=== PATIENT | female | born 1955 | race African-American/Black ===

== ENCOUNTER 2016-11-19 13:06 | Emergency (ER) | payer MEDICAID ==
[2016-11-19] MEDS ORDERED: METHOCARBAMOL 750 MG TABLET ONE (15:19)
[2016-11-19] MEDS ORDERED: HYDROcodone/APAP 5/325 TABLET ONE (15:19)
== END 2016-11-19 15:55 ==
LOC: ED 13:06
DX: Z76.0 Encounter for issue of repeat prescription (principal); M16.11 Unilateral primary osteoarthritis, right hip; M17.11 Unilateral primary osteoarthritis, right knee; I10 Essential (primary) hypertension
CPT/HCPCS: 99283

== ENCOUNTER 2016-11-21 13:48 | Emergency (ER) | payer MEDICAID ==
[~2016-11-21] VITALS: Ht 182.9 cm; Wt 104.5 kg
[2016-11-21 13:50] VITALS: BP 134/78
== END 2016-11-21 14:44 | disposition home or self-care (01) ==
LOC: ED 14:37
DX: S50.361A Insect bite (nonvenomous) of right elbow, initial encounter (principal); I10 Essential (primary) hypertension; W57.XXXA Bitten or stung by nonvenomous insect and other nonvenomous arthropods, initial encounter; Y93.89 Activity, other specified; Y99.8 Other external cause status; Y92.89 Other specified places as the place of occurrence of the external cause
CPT/HCPCS: 99283

== ENCOUNTER 2017-03-24 13:43 | Emergency (ER) | payer MEDICAID ==
[~2017-03-24] VITALS: Ht 182.9 cm; Wt 104.7 kg
[2017-03-24 13:48] VITALS: BP 169/93
== END 2017-03-24 15:18 | disposition home or self-care (01) ==
LOC: ED 15:11
DX: S39.012A Strain of muscle, fascia and tendon of lower back, initial encounter (principal); G89.29 Other chronic pain; M25.551 Pain in right hip; I10 Essential (primary) hypertension; W19.XXXA Unspecified fall, initial encounter; Y93.89 Activity, other specified; Y92.89 Other specified places as the place of occurrence of the external cause; Y99.8 Other external cause status
CPT/HCPCS: 99283

== ENCOUNTER 2017-05-03 12:40 | Emergency (ER) | payer MEDICAID ==
[~2017-05-03] VITALS: Ht 182.9 cm; Wt 101.4 kg
[2017-05-03 12:42] VITALS: BP 103/69
[2017-05-03] MEDS ORDERED: KETOROLAC 30 MG/1 ML IM ONE (13:30)
[2017-05-03] MEDS ORDERED: METHOCARBAMOL 750 MG TABLET PO ONE (13:30)
[2017-05-03] MEDS ORDERED: METHOCARBAMOL 750 MG TABLET ONE (13:31)
[2017-05-03] MEDS ORDERED: KETOROLAC 30 MG/1 ML ONE (13:31)
== END 2017-05-03 14:10 | disposition home or self-care (01) ==
LOC: ED 13:39
DX: G89.29 Other chronic pain (principal); M54.5 Low back pain; I10 Essential (primary) hypertension; M19.90 Unspecified osteoarthritis, unspecified site
CPT/HCPCS: 96372; 99283; J1885

== ENCOUNTER 2019-05-29 13:30 | Inpatient (IN) | payer MEDICAID ==
[~2019-05-29] VITALS: Ht 180.3 cm; Wt 94.2 kg
[~2019-05-29 13:30] MED LIST: BENA5TAB3 PO; CLON0.1T22 PO
[2019-05-29] MEDS ORDERED: ASPIRIN 81 MG TABLET CHEW PO ONE (14:30)
[2019-05-29] MEDS ORDERED: ASPIRIN 81 MG TABLET CHEW ONE (14:31)
[2019-05-29 14:33] LABS: BASOPHILS # (AUTO) 0.02 x10^3/uL (0-0.1); BASOPHILS % (AUTO) 0 % (0-1); EOSINOPHILS # (AUTO) 0.08 x10^3/uL (0-0.4); EOSINOPHILS % (AUTO) 1 % (1-7); LYMPHOCYTES % (AUTO) 19 % (22-44); MD NO; MEAN CORPUSCULAR HEMOGLOBIN 35.1 pg (27.0-34.8); MEAN CORPUSCULAR HGB CONC 33.6 g/dL (32.4-35.8); MEAN CORPUSCULAR VOLUME 104.3 fL (80-100); MEAN PLATELET VOLUME 8.2 fL (7.4-10.4); MONOCYTES # (AUTO) 0.52 x10^3/uL (0.2-0.8); MONOCYTES % (AUTO) 9 % (2-9); NEUTROPHILS # (AUTO) 4.24 x10^3/uL (1.8-6.8); NEUTROPHILS % (AUTO) 71 % (42-75); PLATELET COUNT 233 x10^3/uL (130-400); RED CELL DISTRIBUTION WIDTH 14.4 % (9.6-15.2)
[2019-05-29 14:38] LABS: ALANINE AMINOTRANSFERASE 20 U/L (12-78); ALBUMIN 3.9 g/dL (3.4-5.0); ANION GAP 8 mmol/L (5-15); CALCIUM 10.5 mg/dL (8.5-10.1); CHLORIDE 109 mmol/L (98-107)
[2019-05-29 14:42] LABS: ALKALINE PHOSPHATASE 73 U/L (45-117); BILIRUBIN,TOTAL 0.7 mg/dL (0.2-1.0); CREATININE 1.24 mg/dL (0.55-1.02); TOTAL PROTEIN 8.2 g/dL (6.4-8.2); TROPONIN I < 0.015 ng/mL (0.000-0.045)
--- NOTE | 2019-05-29 16:43 | NUR ---
TASK RN, COVERING MEAL BREAK. PT IN CT.
--- NOTE | 2019-05-29 17:02 | NUR ---
PT BACK FROM CT. VSS/UPDATED IN COMPUTER.
--- NOTE | 2019-05-29 17:08 | NUR ---
CT READ BACK, PT FOR RECHECK.
[2019-05-29] MEDS ORDERED: SODIUM CHLORIDE FLUSH 10ML SYR IVF PRN (18:30)
[2019-05-29] MEDS ORDERED: ONDANSETRON 2MG/ML, 2ML IVPush PRN (19:30)
[2019-05-29] MEDS ORDERED: hydrALAzine 20 MG/ML, 1ML IVPush PRN (19:30)
[2019-05-29] MEDS ORDERED: NITROGLYCERIN 0.4 MG BOTTLE (25 TABS) SL PRN (19:30)
[2019-05-29] MEDS ORDERED: ACETAMINOPHEN 325 MG TABLET PO PRN (19:30)
[2019-05-29] MEDS ORDERED: CYCL-259 PO (20:05)
[2019-05-29] MEDS ORDERED: ATOR20TA86 PO (20:05)
[2019-05-29] MEDS ORDERED: HYDR25TA6 PO (20:05)
[2019-05-29] MEDS ORDERED: ESCI5TAB PO (20:05)
[2019-05-29] MEDS ORDERED: BENA40TA3 PO (20:05)
[2019-05-29] MEDS ORDERED: HYDR-3245 PO (20:05)
[2019-05-29] MEDS ORDERED: AMLO-150 PO (20:05)
[2019-05-29 20:08] VITALS: BP 118/81
[2019-05-29 21:21] LABS: TROPONIN I < 0.015 ng/mL (0.000-0.045)
[2019-05-29] MEDS: HEPARIN 5,000 UNITS/ML, 1ML SQ SCH (21:37)
[2019-05-30] MEDS: HYDROcodone/APAP 10/325 MG TABLET PO PRN ×3 (00:32→18:14)
[2019-05-30 02:31] LABS: ANION GAP 8 mmol/L (5-15); CALCIUM 10.3 mg/dL (8.5-10.1); CHLORIDE 106 mmol/L (98-107); CHOLESTEROL, TOTAL 206 mg/dL (140-239)
[2019-05-30 02:33] LABS: CHOL/HDL RATIO 4.2; HDL CHOL % 24 % (28-40); HDL CHOLESTEROL (DIRECT) 49 mg/dL (40-60); LDL CHOLESTEROL,CALCULATED 138 mg/dL (54-169); LDL/HDL RATIO 2.8 (0.5-3.0); TRIGLYCERIDES 94 mg/dL (50-200); VLDL CHOLESTEROL 19 mg/dL (0-25)
[2019-05-30 02:43] LABS: TROPONIN I < 0.015 ng/mL (0.000-0.045)
[2019-05-30 03:47] VITALS: BP 103/68
[2019-05-30] MEDS: HEPARIN 5,000 UNITS/ML, 1ML SQ SCH ×3 (06:48→21:21)
[2019-05-30] MEDS: ASPIRIN 325 MG TABLET EC PO SCH (06:48)
[2019-05-30 08:09] VITALS: BP 121/72
[2019-05-30] MEDS ORDERED: REGADENOSON 0.4 MG/5 ML SYRINGE ONE (08:39)
[2019-05-30 13:00] VITALS: BP 118/76
[2019-05-30] MEDS ORDERED: SODIUM CHLORIDE 0.9% 1,000 ML IV SCH (14:30)
[2019-05-30] MEDS ORDERED: FUROSEMIDE 20 MG/2 ML IV SCH (17:00)
[2019-05-30 18:18] VITALS: BP 112/78
[2019-05-30] MEDS ORDERED: DILTIAZEM 5 MG/ML, 5ML ONE (18:30)
[2019-05-30] MEDS ORDERED: DILTIAZEM 5 MG/ML, 5ML IVPush ONE (18:30)
[2019-05-30 20:22] VITALS: BP 114/73
[2019-05-30] MEDS: ATORVASTATIN 40 MG TABLET PO SCH (21:21)
[2019-05-31] VITALS (8 sets, daily range): BP systolic 101–124; BP diastolic 70–79
[2019-05-31] MEDS ORDERED: NITROGLYCERIN 0.4 MG/SPRAY SL PRN (00:30)
[2019-05-31] MEDS ORDERED: NITROGLYCERIN 0.4 MG BOTTLE (25 TABS) SL PRN (00:30)
[2019-05-31] MEDS ORDERED: DILTIAZEM 5 MG/ML, 5ML IVPush ONE ×2 (02:30→04:00)
[2019-05-31] MEDS: HYDROcodone/APAP 10/325 MG TABLET PO PRN ×3 (03:16→18:34)
[2019-05-31] MEDS ORDERED: DILTIAZEM 125 MG in SODIUM CHLORIDE 0.9% 100 ML IV SCH (04:30)
[2019-05-31] MEDS: ASPIRIN 325 MG TABLET EC PO SCH (05:37)
[2019-05-31] MEDS: HEPARIN 5,000 UNITS/ML, 1ML SQ SCH ×3 (05:38→21:21)
[2019-05-31 05:42] LABS: ALBUMIN 3.4 g/dL (3.4-5.0); CHLORIDE 109 mmol/L (98-107)
[2019-05-31 05:47] LABS: ALANINE AMINOTRANSFERASE 22 U/L (12-78); ALKALINE PHOSPHATASE 63 U/L (45-117); ANION GAP 5 mmol/L (5-15); BILIRUBIN,TOTAL 0.5 mg/dL (0.2-1.0); CREATININE 1.04 mg/dL (0.55-1.02); TOTAL PROTEIN 7.5 g/dL (6.4-8.2)
[2019-05-31] MEDS ORDERED: ASPIRIN 81 MG TABLET CHEW PO SCH (09:00)
[2019-05-31] MEDS: METOPROLOL TARTRATE 50 MG TABLET PO SCH ×2 (09:07→17:34)
[2019-05-31] MEDS: FUROSEMIDE 20 MG/2 ML IV SCH ×2 (09:08→09:49)
[2019-05-31] MEDS: ATORVASTATIN 40 MG TABLET PO SCH (21:21)
[2019-06-01] MEDS: HYDROcodone/APAP 10/325 MG TABLET PO PRN ×2 (01:54→10:33)
[2019-06-01 02:00] VITALS: BP 102/70
[2019-06-01 04:54] LABS: ALBUMIN 3.2 g/dL (3.4-5.0); ANION GAP 5 mmol/L (5-15); CALCIUM 9.7 mg/dL (8.5-10.1); CHLORIDE 109 mmol/L (98-107)
[2019-06-01 04:59] LABS: ALANINE AMINOTRANSFERASE 21 U/L (12-78); ALKALINE PHOSPHATASE 65 U/L (45-117); BILIRUBIN,TOTAL 0.4 mg/dL (0.2-1.0); CREATININE 0.93 mg/dL (0.55-1.02); TOTAL PROTEIN 7.3 g/dL (6.4-8.2)
[2019-06-01 05:56] VITALS: BP 102/68
[2019-06-01] MEDS: METOPROLOL TARTRATE 50 MG TABLET PO SCH (05:58)
[2019-06-01] MEDS: ASPIRIN 325 MG TABLET EC PO SCH (05:58)
[2019-06-01] MEDS: HEPARIN 5,000 UNITS/ML, 1ML SQ SCH ×2 (06:02→15:31)
[2019-06-01 08:36] VITALS: BP 116/72
[2019-06-01 14:34] VITALS: BP 125/81
[2019-06-01] MEDS ORDERED: FURO20TA3 PO (14:43)
[2019-06-01] MEDS ORDERED: POTA10TA5 PO (14:43)
[2019-06-01] MEDS ORDERED: APIX5TAB PO (14:43)
[2019-06-01] MEDS ORDERED: METO50TA82 PO (14:43)
[2019-06-01] MEDS ORDERED: FUROSEMIDE 20 MG TABLET PO SCH (17:00)
[2019-06-01] MEDS ORDERED: APIXABAN 5 MG TABLET PO SCH (21:00)
== END 2019-06-01 21:17 | disposition home or self-care (01) | DRG 198 ==
LOC: ED 17:57 → EDIP 18:06 → 5SO 19:54
PROVIDERS: ADMIT Family Medicine; ATTEND Internal Medicine
DX: R07.89 Other chest pain (principal); I25.10 Atherosclerotic heart disease of native coronary artery without angina pectoris; N17.0 Acute kidney failure with tubular necrosis; I11.0 Hypertensive heart disease with heart failure; I50.9 Heart failure, unspecified; E21.3 Hyperparathyroidism, unspecified; G89.29 Other chronic pain; I48.91 Unspecified atrial fibrillation; I48.92 Unspecified atrial flutter; K43.9 Ventral hernia without obstruction or gangrene; M16.0 Bilateral primary osteoarthritis of hip; M17.0 Bilateral primary osteoarthritis of knee
CPT/HCPCS: 36415; 71045; 71275; 78452; 80048; 80053; 80061; 82306; 82330; 83880; 83970; 84100; 84443; 84484; 85025; 85379; 93005; 93017; 93306; G0378; J1644; J2785; A9502; J1940

== ENCOUNTER 2019-06-08 14:12 | Emergency (ER) | payer MEDICAID ==
[~2019-06-08] VITALS: Ht 180.3 cm; Wt 98.7 kg
[~2019-06-08 14:12] MED LIST changes: +AMLO-150 PO; +APIX5TAB PO; +ATOR20TA86 PO; +BENA40TA3 PO; +CYCL-259 PO; +ESCI5TAB PO; +FURO20TA3 PO; +HYDR-3245 PO; +HYDR25TA6 PO; +METO50TA82 PO; +POTA10TA5 PO
--- NOTE | 2019-06-08 14:30 | NUR ---
DIZZY, SWEATY, SOLORZANO, CP, SOB WITH EXERTION STARTING THIS AM. HAD VITALS CHECKED AT [facility]. WAS TOLD TO COME TO ER BECAUSE SHE WAS HAVING A HEART ATTACK. Appears well, vss. Seen here for same as well and pedal swelling "last week." Has been compliant with meds post discharge ECG obtained in [facility]
[2019-06-08] MEDS ORDERED: ASPIRIN 81 MG TABLET CHEW ONE (14:57)
[2019-06-08] MEDS ORDERED: ASPIRIN 81 MG TABLET CHEW PO ONE (15:00)
--- NOTE | 2019-06-08 15:00 | NUR ---
medicated per emar
--- NOTE | 2019-06-08 15:03 | NUR ---
lab to bedside-labs obtained
[2019-06-08] MEDS ORDERED: METH500T7 PO (15:05)
[2019-06-08 15:07] LABS: BASOPHILS # (AUTO) 0.03 x10^3/uL (0-0.1); BASOPHILS % (AUTO) 1 % (0-1); EOSINOPHILS # (AUTO) 0.07 x10^3/uL (0-0.4); EOSINOPHILS % (AUTO) 1 % (1-7); LYMPHOCYTES # (AUTO) 1.41 x10^3/uL (1-3.4); LYMPHOCYTES % (AUTO) 28 % (22-44); MD NO; MEAN CORPUSCULAR HEMOGLOBIN 35.1 pg (27.0-34.8); MEAN CORPUSCULAR HGB CONC 33.5 g/dL (32.4-35.8); MEAN CORPUSCULAR VOLUME 104.7 fL (80-100); MEAN PLATELET VOLUME 8.1 fL (7.4-10.4); MONOCYTES # (AUTO) 0.52 x10^3/uL (0.2-0.8); MONOCYTES % (AUTO) 11 % (2-9); NEUTROPHILS # (AUTO) 2.93 x10^3/uL (1.8-6.8); NEUTROPHILS % (AUTO) 59 % (42-75); PLATELET COUNT 222 x10^3/uL (130-400); RED CELL DISTRIBUTION WIDTH 14.5 % (9.6-15.2)
[2019-06-08 15:16] LABS: ALBUMIN 3.6 g/dL (3.4-5.0); ANION GAP 9 mmol/L (5-15); CALCIUM 9.2 mg/dL (8.5-10.1); CHLORIDE 113 mmol/L (98-107)
[2019-06-08 15:19] LABS: TROPONIN I < 0.015 ng/mL (0.000-0.045)
[2019-06-08 15:30] VITALS: BP 119/76
--- NOTE | 2019-06-08 16:38 | NUR ---
After clarification with provided admit order d/c's as patient with clean cardiac cath recently. However cr noted to be increased-therfore provided ordered patient /2 dose. Was taking 20mg bid, now to take 20mg once a day
== END 2019-06-08 16:43 | disposition home or self-care (01) ==
LOC: ED 14:43 → UNDOADMIN 15:37 → EDIP 15:37 → ED 16:43
DX: R07.89 Other chest pain (principal); R06.02 Shortness of breath; R42 Dizziness and giddiness; R51 Headache; R61 Generalized hyperhidrosis; I11.0 Hypertensive heart disease with heart failure; I50.9 Heart failure, unspecified; M19.90 Unspecified osteoarthritis, unspecified site
CPT/HCPCS: 36415; 71045; 80048; 82040; 84484; 85025; 93005; 99284